=== PATIENT | female | born 1965 | race Caucasian/White ===

== ENCOUNTER 2016-12-01 08:15 | Outpatient (CLI) | payer OTHER ==
[2016-12-01 09:04] LABS: eGFR (African) > 60; eGFR (Non-African) > 60
[2016-12-01 18:00] LABS: VITAMIN D, 25-HYDROXY 17 ng/mL (30-100)
== END 2016-12-01 08:16 ==
LOC: LAB 08:15
PROVIDERS: ATTEND Family Medicine
DX: Z00.00 Encounter for general adult medical examination without abnormal findings (principal)
CPT/HCPCS: 36415; 80053; 80061; 82306; 82607; 83001; 83002; 83036

== ENCOUNTER 2016-12-12 10:14 | Outpatient (CLI) | payer OTHER | END 2016-12-12 10:15 | LOC: LABRHC 10:14 | PROVIDERS: ATTEND Physician Assistant | DX: R30.0 Dysuria (principal) | CPT/HCPCS: 87086; 87186 ==

== ENCOUNTER 2016-12-22 16:03 | Outpatient (CLI) | payer OTHER | END 2016-12-22 16:04 | LOC: LABRHC 16:03 | PROVIDERS: ATTEND Physician Assistant | DX: R31.9 Hematuria, unspecified (principal) | CPT/HCPCS: 87086 ==

== ENCOUNTER 2017-01-17 13:35 | Outpatient (CLI) | payer OTHER | END 2017-01-17 13:36 | LOC: LABRHC 13:35 | PROVIDERS: ATTEND Physician Assistant | DX: R30.0 Dysuria (principal) | CPT/HCPCS: 87086 ==

== ENCOUNTER 2018-04-26 16:58 | Outpatient (CLI) | payer OTHER | END 2018-04-26 17:00 | LOC: LABRHC 16:58 | PROVIDERS: ATTEND Physician Assistant | DX: R30.0 Dysuria (principal) | CPT/HCPCS: 87086 ==

== ENCOUNTER 2018-11-28 16:31 | Outpatient (CLI) | payer OTHER ==
[2018-11-28 17:14] LABS: BASOPHILS % 1.4 % (0.0-1.5); EOSINOPHILS % 3.4 % (0.0-6.8); MEAN CORPUSCULAR HEMOGLOBIN 26.7 pg (28.0-34.0); MONOCYTES % 6.9 % (0.0-11.0); NEUTROPHILS # 11.7 # k/uL (1.4-7.7)
== END 2018-11-28 16:35 ==
LOC: LAB 16:31
PROVIDERS: ATTEND Family Medicine
DX: R10.2 Pelvic and perineal pain (principal)
CPT/HCPCS: 36415; 85025

== ENCOUNTER 2018-12-04 16:22 | Outpatient (CLI) | payer OTHER ==
[2018-12-04 20:16] LABS: MEAN CORPUSCULAR HEMOGLOBIN 26.8 pg (28.0-34.0)
[2018-12-04 20:17] LABS: SEGMENTED NEUTROPHILS % 50 % (39-79)
[2018-12-04 20:18] LABS: BASOPHILS % 1 % (0-2); EOSINOPHILS % 6 % (0-7); MONOCYTES % 9 % (0-11)
[2018-12-04 20:19] LABS: GIANT PLATELETS PRESENT (NEGATIVE); PLT EST. EST. AGREES W/PLT CT
== END 2018-12-04 16:24 ==
LOC: LAB 16:22
PROVIDERS: ATTEND Family Medicine
DX: D72.829 Elevated white blood cell count, unspecified (principal)
CPT/HCPCS: 36415; 85025

== ENCOUNTER 2019-08-04 11:55 | Outpatient (CLI) | payer OTHER ==
[2019-08-04 13:10] LABS: eGFR (Non-African) > 60
[2019-08-04 14:33] LABS: SEGMENTED NEUTROPHILS % 58 % (39-79)
== END 2019-08-04 12:00 ==
LOC: LAB 11:55
PROVIDERS: ATTEND Nurse Practitioner Family
DX: R07.89 Other chest pain (principal); R53.82 Chronic fatigue, unspecified; R25.1 Tremor, unspecified
CPT/HCPCS: 36415; 80053; 82306; 83735; 84443; 85025; 85651; 86140; 93005